=== PATIENT | female | born 1995 | race Caucasian/White ===

== ENCOUNTER 2018-01-22 16:58 | Inpatient (IN) | payer OTHER ==
[~2018-01-22] VITALS: Ht 149.9 cm; Wt 60.8 kg
[2018-01-22] MEDS ORDERED: PRENATAL 19 TA1 EAC1 PO (18:42)
[2018-01-25] MEDS ORDERED: SURFAK240 M1 PO (16:54)
[2018-01-25] MEDS ORDERED: PERCOCET 5-3251 EACH PO (16:54)
== END 2018-01-25 18:00 | disposition home or self-care (01) | DRG 788 ==
LOC: LDR 16:58 → OB/GYN 16:58 → O/R 01-23 01:05 → OB/GYN 01-23 01:58
PROVIDERS: Specialist
PROC: 4A033R1 Measurement of Arterial Saturation, Peripheral, Percutaneous Approach (ICD-10-PCS; 2018-01-23)
PROC: 4A1HXCZ Monitoring of Products of Conception, Cardiac Rate, External Approach (ICD-10-PCS; 2018-01-23)
PROC: 10D00Z1 Extraction of Products of Conception, Low, Open Approach (ICD-10-PCS; principal; 2018-01-23 07:00)
DX: O62.0 Primary inadequate contractions (principal); Z3A.38 38 weeks gestation of pregnancy; Z37.0 Single live birth

== ENCOUNTER 2023-03-05 08:48 | Outpatient (CLI) | payer OTHER ==
[~2023-03-05 08:48] MED LIST: PERCOCET 5-3251 EACH PO; PRENATAL 19 TA1 EAC1 PO; SURFAK240 M1 PO
== END 2023-03-05 08:49 | disposition home or self-care (01) ==
LOC: PRENATAL 08:48
PROVIDERS: ATTEND Obstetrics & Gynecology Maternal & Fetal Medicine
DX: O35.9XX0 Maternal care for (suspected) fetal abnormality and damage, unspecified, not applicable or unspecified (principal); O35.3XX0 Maternal care for (suspected) damage to fetus from viral disease in mother, not applicable or unspecified; O44.00 Complete placenta previa NOS or without hemorrhage, unspecified trimester; Z3A.20 20 weeks gestation of pregnancy

== ENCOUNTER 2023-05-28 09:13 | Outpatient (CLI) | payer OTHER | END 2023-05-28 09:14 | disposition home or self-care (01) | LOC: PRENATAL 09:13 | PROVIDERS: ATTEND Obstetrics & Gynecology Maternal & Fetal Medicine | DX: O26.849 Uterine size-date discrepancy, unspecified trimester (principal); O36.8199 Decreased fetal movements, unspecified trimester, other fetus; Z3A.32 32 weeks gestation of pregnancy ==